=== PATIENT | male | born 1960 | race Asian ===

== ENCOUNTER → 2020-06-20 15:30 | Outpatient (CLI) | payer OTHER, SELFPAY ==
[2020-06-20] MEDS: COVID-19 VACC #1, MRNA(MOD) 100 MCG/0.5 ML VIAL IM (15:45)
== END ==
PROVIDERS: Visit Provider Internal Medicine
DX: Z23 Encounter for immunization (principal)
CPT/HCPCS: 0011A; 91301

== ENCOUNTER → 2020-07-20 15:10 | Outpatient (CLI) | payer OTHER, SELFPAY ==
[2020-07-20] MEDS: COVID-19 VACC #2, MRNA(MOD) 100 MCG/0.5 ML VIAL IM (15:34)
== END ==
PROVIDERS: Visit Provider Internal Medicine
DX: Z23 Encounter for immunization (principal)
CPT/HCPCS: 0012A; 91301